=== PATIENT | male | born 2000 | race Caucasian/White ===

== ENCOUNTER 2023-10-21 01:35 | Emergency (ER) | payer OTHER ==
[~2023-10-21] VITALS: Ht 172.7 cm; Wt 62.8 kg
[2023-10-21] MEDS ORDERED: DIPHTH,PERTUSS(ACELL),TET VAC 0.5 ML SYRINGE IM ONE (02:30)
[2023-10-21 02:33] LABS: BASOPHILS 0.9 % (0-2); EOSINOPHILS 1.4 % (0-6); HEMATOCRIT 42.4 % (35.0-50.0); LYMPHOCYTES 23.5 % (24-44); MCH 30.4 (27-36); MCHC 33.1 g/dl (30-36); MCV 91.8 fl (81-99); MONOCYTES 7.2 % (0-12); PLATELET COUNT 261 K/uL (140-440); RBC 4.61 M/ul (4.3-5.7); RDW 13.8 (10.5-15.0)
[2023-10-21 02:40] LABS: BILIRUBIN, URINE NEGATIVE (negative); BLOOD/HGB, URINE NEGATIVE (Negative); KETONE, URINE NEGATIVE (Negative); LEUK ESTERASE, URINE NEGATIVE (negative); NITRITE, URINE NEGATIVE (negative)
[2023-10-21 02:52] LABS: AMPHETAMINES, URINE NEGATIVE (NEGATIVE); BARBITURATES, URINE NEGATIVE (NEGATIVE); BENZODIAZEPINE, URINE NEGATIVE (NEGATIVE); BUPRENORPHINE, URINE NEGATIVE (NEGATIVE); CANNABINOID, URINE POSITIVE (NEGATIVE); COCAINE, URINE NEGATIVE (NEGATIVE); ECSTASY, URINE NEGATIVE (NEGATIVE); FENTANYL, URINE NEGATIVE (NEGATIVE); METHADONE, URINE NEGATIVE (NEGATIVE); OPIATES, URINE NEGATIVE (NEGATIVE); OXYCODONE, URINE NEGATIVE (NEGATIVE); PHENCYCLIDINE, URINE NEGATIVE (NEGATIVE)
[2023-10-21 02:56] LABS: ALBUMIN 3.6 g/dL (3.4-5.0); ALBUMIN/GLOBULIN RATIO 1.13 (1.1-2.4); ALCOHOL, MEDICAL <3 ng/dL (<3); ALKALINE PHOSPHATASE 71 U/L (46-116); ALT (SGPT) 13 U/L (14-59); ANION GAP 10.8 (7-21); AST (SGOT) 23 U/L (15-37); BILIRUBIN, TOTAL 0.3 ng/dL (0.2-1.0); BUN/CREATININE RATIO 9.92 (6.0-28.6); CALCIUM 8.5 mg/dL (8.5-10.1); CARBON DIOXIDE 29 mmol/L (21-32); CHLORIDE 103 mmol/L (98-107); CREATINE KINASE 344 U/L (39-308); CREATININE, SERUM 1.41 mg/dL (0.70-1.30); GLOMERULAR FILTRATION RATE,EST 71 mL/min (>60); POTASSIUM 3.8 mmol/L (3.5-5.1); PROTEIN, TOTAL 6.8 g/dL (6.4-8.2); UREA NITROGEN 14 mg/dL (7-18)
[2023-10-21 04:28] VITALS: BP 122/68
== END 2023-10-21 04:25 | disposition home or self-care (01) ==
LOC: ED 01:35
PROVIDERS: Internal Medicine
DX: S40.012A Contusion of left shoulder, initial encounter (principal); V43.52XA Car driver injured in collision with other type car in traffic accident, initial encounter
CPT/HCPCS: 36415; 70450; 71260; 72125; 74177; 80053; 80307; 81003; 82553; 83690; 85025; 90471; 90715; 99284-25; G0480; Q9967